=== PATIENT | female | born 1985 | race Caucasian/White ===

== ENCOUNTER 2021-12-07 14:43 | Outpatient (CLI) | payer OTHER, BC, SELFPAY ==
--- NOTE | 2021-12-07 15:12 | ECG_ITS ---
Measurements Intervals [place] Rate: 81 P: 65 NM: 149 QRS: 41 QRSD: 86 T: 36 QT: 372 QTc: 432 Interpretive Statements SINUS RHYTHM WITH SINUS ARRHYTHMIA RSR' IN V1 OR V2, PROBABLY NORMAL VARIANT BASELINE ARTIFACT- II, III NORMAL ECG Electronically Signed On 12-07-2021 15:27:05 SOCIAL WORK SPECIALIST by Jose Luis Ward D.O.
[2021-12-07 15:37] LABS: Hematocrit 39.1 % (37.0-47.0); Hemoglobin 13.8 g/dL (12.0-15.0)
== END 2021-12-07 14:44 | disposition home or self-care (01) ==
PROVIDERS: Anesthesiology; PCP Family Medicine; Visit Provider Surgery Plastic and Reconstructive Surgery
DX: Z01.818 Encounter for other preprocedural examination (principal); I49.9 Cardiac arrhythmia, unspecified
CPT/HCPCS: 36415; 85014; 85018; 93005

== ENCOUNTER → 2021-12-09 00:28 | Outpatient (CLI) | payer BC, SELFPAY ==
[2021-12-09 22:40] LABS: SARS-CoV-2 RNA PCR Negative
== END ==
PROVIDERS: PCP Family Medicine; Visit Provider Surgery Plastic and Reconstructive Surgery
DX: Z01.812 Encounter for preprocedural laboratory examination (principal); Z20.822 Contact with and (suspected) exposure to COVID-19
CPT/HCPCS: C9803; U0003; U0005

== ENCOUNTER 2021-12-12 | Day surgery (SDC) | payer BC, OTHER, SELFPAY ==
[2021-12-05 15:38] VITALS: BMI 26.9
--- NOTE | 2021-12-05 15:56 | PC.NURSE ---
Report to the Outpatient Waiting Room, entrance under the green pavilion located off [facility], at time 6:30 on date 12/12/21. OR Time: 8:30. - You will be asked a series of questions to screen for COVID 19 for your protection. - A mask is required within the hospital. - No visitors are allowed at this time. Preoperative COVID Testing Requirements: COVID TEST 12/09 AT 8:00 No COVID Test needed if: (proof is required; if not received patient will have Rapid Test prior to entry) - Patient has received COVID Vaccine at least 14 days prior to procedure date or - Patient has positive COVID test result within last 90 days of surgery date. COVID Test needed if above criteria is not met If not COVID vaccinated a COVID test must be conducted within 72 hours of surgery and patient is asked to isolate self from time of testing until procedure. You will go to the [facility] for your COVID testing. The [facility] is located at the corner of [address] from [facility]. You will only be called if COVID results are positive and your surgeon may reschedule your elective surgery date. Patients may have clear liquids (water, carbonated beverages, clear teas, apple juice) until 3 hours prior to surgery (5:30) with a maximum of 20 ounces. - No food from midnight until time of surgery Take the following medications with a SIP of water the morning of surgery: WELLBUTRIN, LEXAPRO Medications to discontinue per physician: VITAMINS/SUPPLEMENTS Date to take last dose: 12/08/21 Please no make-up, nail faroese, hairspray, perfume, deodorant, or body powder the day of surgery. No jewelry (including any body piercings) or valuables the day of surgery, leave them at home. Please take a shower or bath the night before, or the morning of, surgery with an antibacterial soap. Wear comfortable, loose fitting clothing. - Jewelry must be removed prior to entering the operating room. Rings and piercings that are not removed may be cut off. - The hospital will not accept responsibility for valuables. - Please leave all valuables, including medications, at home the day of surgery. If you are going home after surgery, a licensed milk driver must drive you home. - NO public transportation without another adult. - We recommend that an adult stay with you for 24 hours following discharge. - We also recommend that you do not drive, make important decision, drink alcoholic beverages, or take any drugs that were not prescribed by your health care provider for at least 24 hours after your discharge time. Follow any additional instructions given to you from your surgeon. Telephone instructions given to JAMIE LOPEZ and asked if any additional questions and then verbalized understanding. Patient advised to call surgeon office or pre surgery nurse liaison [phone] if any additional questions.
--- NOTE | 2021-12-11 11:49 | PM.IMHP ---
H&P: HPI History of Present Illness Date/Time: 12/11/21 11:49 This is a 36-year-old female who desires permanent sterilization. She was offered alternatives including but not exclusive of long-acting contraceptives pills patches injections implants. She decides upon permanent sterilization understanding that this is permanent and irreversible risks and benefits of the procedure reviewed including but not exclusive of , aspiration bleeding, transfusion, perforation under bowel, bladder, ureters, or other internal organs with need for open laparotomy. She received the [employer] handout entitled sterilization for men and women. She had all questions answered. She asked to proceed Chief Complaint: desires permanent sterilization Review of Systems Review of Systems: All systems reviewed & are unremarkable except as noted in HPI and below PMFSH Past Medical History Medical History Abnormal weight gain BMI 29.0-29.9,adult Family History Family History Mother Hypertension Family history of diabetes mellitus in first degree relative Father Cerebrovascular accident Grandparent Carcinoma of colon Family history of lung cancer Family history of malignant neoplasm of breast Family history of heart disease in male family member before age 55 Other Family history of malignant neoplasm Family history of malignant neoplasm of ovary Family history of throat cancer Social History Social History Smoking status: Never smoker Alcohol intake: current Drinks per week: 2 Substance use: never Substance use type: does not use Spiritual care concerns: No Meds Home Medications and Allergies Home Medications Medication Instructions Recorded Confirmed Type bupropion HCl 150 mg 24 hr tablet, 150 mg PO QAM #30 tablet 08/02/21 12/05/21 Rx extended release escitalopram oxalate 20 mg tablet 20 mg PO DAILY #30 tablet 08/02/21 12/05/21 Rx docusate sodium 100 mg capsule 100 mg PO DAILY #14 cap 11/29/21 12/05/21 Rx carisoprodol 350 mg tablet 350 mg PO TID PRN #21 tablet 12/01/21 12/05/21 Rx oxycodone-acetaminophen 5 mg-325 1 tablet PO Q6H PRN #30 tablet 12/01/21 12/05/21 Rx mg tablet ascorbic acid (vitamin C) [Vitamin 2,000 mg PO DAILY 12/05/21 12/05/21 History C] ascorbic acid-vitamin E-biotin 1 tablet PO DAILY 12/05/21 12/05/21 History [Hair, Skin, Nails with Biotin] magnesium 100 mg PO DAILY 12/05/21 12/05/21 History Allergies Allergy/AdvReac Type Severity Reaction Status Date / Time codeine AdvReac Severe Vomiting Verified 12/05/21 15:34 Exam Const: General: no acute distress Eyes: General: appearance normal, both eyes and all related structures Neck: Neck: supple and no JVD Thyroid: thyroid normal Resp: Effort & Inspection: normal respiratory effort Auscultation: clear to auscultation bilaterally Cardio: Rate: regular rate Rhythm: regular rhythm GI: Inspection: non-distended GI Palp: Yes Soft to palpation, No Tenderness to palpation present (GI) and No Guarding due to palpation present (GI) Auscultation: normal bowel sounds : General: Yes bladder normal to palpation External Female Exam: normal external appearance Speculum Exam - Vagina: normal vaginal discharge and No vaginal bleeding Speculum Exam - Cervix: nontender Bimanual exam- vagina & uterus: bladder normal to palpation and No Cervical tenderness present OB/external & speculum: No vaginal bleeding Skin: General skin exam: no rashes or lesions noted Extrem: General: normal to inspection and no edema Psych: Mental Status: mental status grossly normal Affect: normal affect Assessment and Plan Additional Plan impression: Desires permanent sterilization Plan: Laparoscopic tubal ligation
[2021-12-12] VITALS (11 sets, daily range): BP systolic 103–132; BP diastolic 46–89; PULSE 78–98; RESP 14–20; TEMP 36.4–37.2; O2SAT 96–100
[2021-12-12 07:05] LABS: Urine Cotinine NEGATIVE
--- NOTE | 2021-12-12 07:06 | WPDHPUPDATE1 ---
History and Physical Update Update Date/Time: 12/12/21 07:06 History and Physical has been reviewed, including an updated exam of the patient. There are NO changes in the patient's condition. Risks, benefits, and alternatives have been discussed and questions answered. Patient agrees to proceed with procedure.
[2021-12-12] MEDS: ACETAMINOPHEN 500 MG TABLET 1000 MG PO (07:08)
[2021-12-12] MEDS: KETOROLAC 15 MG/ML VIAL (*BKC) IV PUSH (07:09)
[2021-12-12] MEDS: SCOPOLAMINE 1.5 MG PATCH TRANSDERM (07:28)
--- NOTE | 2021-12-12 07:28 | WPDANESEPPF ---
Anes - Initial Pre Proc Eval Procedure: Operation Date: 12/12/21 08:30 Proposed Procedures p Bilateral Breast Augmentation Mastopexy with Galaflex - Lenny Vallejo MD s Abdominoplasty with Liposuction - Lenny Vallejo MD s Laparoscopic Bilateral Tubal with Fallopian Rings - David Stanford MD Date/Time: 12/12/21 07:28 Surgeon: Lenny Vallejo MD Pre Op Diagnosis: skin laxity, micromastia Patient Data Age: 36 Gender: F Height: 1.7 m Weight: 77.15 kg Allergies Allergy/AdvReac Type Severity Reaction Status Date / Time codeine AdvReac Severe Vomiting Verified 12/12/21 06:39 Home Medications Medication Instructions Recorded Confirmed Type bupropion HCl 150 mg 24 hr tablet, 150 mg PO QAM #30 tablet 08/02/21 12/05/21 Rx extended release escitalopram oxalate 20 mg tablet 20 mg PO DAILY #30 tablet 08/02/21 12/05/21 Rx docusate sodium 100 mg capsule 100 mg PO DAILY #14 cap 11/29/21 12/05/21 Rx carisoprodol 350 mg tablet 350 mg PO TID PRN #21 tablet 12/01/21 12/05/21 Rx oxycodone-acetaminophen 5 mg-325 1 tablet PO Q6H PRN #30 tablet 12/01/21 12/05/21 Rx mg tablet ascorbic acid (vitamin C) [Vitamin 2,000 mg PO DAILY 12/05/21 12/05/21 History C] ascorbic acid-vitamin E-biotin 1 tablet PO DAILY 12/05/21 12/05/21 History [Hair, Skin, Nails with Biotin] magnesium 100 mg PO DAILY 12/05/21 12/05/21 History Laboratory Tests 12/12/21 06:50 Cotinine Negative Patient hx anesthesia problems: none Family hx anesthesia problems: none Results Review: All pre-operative results and documents have been reviewed as part of the pre-operative evaluation. [facility] Past Medical History Medical History Abnormal weight gain BMI 29.0-29.9,adult Surgical History Surgical History (Updated 12/12/21 @ 07:29 by David Purvis MD) H/O wisdom tooth extraction History of section Family History Family History Mother Hypertension Family history of diabetes mellitus in first degree relative Father Cerebrovascular accident Grandparent Carcinoma of colon Family history of lung cancer Family history of malignant neoplasm of breast Family history of heart disease in male family member before age 55 Other Family history of malignant neoplasm Family history of malignant neoplasm of ovary Family history of throat cancer Social History Social History Smoking status: Never smoker Alcohol intake: current Drinks per week: 2 Substance use: never Substance use type: does not use Living arrangements: with family Spiritual care concerns: No Anes - Eval Final PreProcedure Day of Procedure 12/12/21 07:28 Patient weight: overweight Heart: regular rate and rhythm Lungs: clear to auscultation Airway: Mallampati scale class II Neurological: alert and oriented Last oral intake: >/= 8 hours ASA classification: II Emergent: no Anesthetic plan: proceed Anesthesia type and monitoring: general ETT and standard monitoring Results Review: All pre-operative results and documents have been reviewed as part of the pre-operative evaluation. Informed Consent: The patient's anesthetic plan and its attendant risks and benefits were discussed with the patient/family/POA. Questions were solicited and answers provided to the satisfaction of the patient/family/POA.
[2021-12-12] MEDS: LACTATED RINGERS 1,000 ML 30 ML IV CONT ×2 (07:33→15:36)
--- NOTE | 2021-12-12 07:40 | WPDHPUPDATE1 ---
History and Physical Update Update Date/Time: 12/12/21 07:40 History and Physical has been reviewed, including an updated exam of the patient. There are NO changes in the patient's condition. Risks, benefits, and alternatives have been discussed and questions answered. Patient agrees to proceed with procedure.
--- NOTE | 2021-12-12 08:16 | W.PM.PROC2 ---
Procedure Note - Detailed Date of Procedure 12/12/21 Pre-op Diagnosis skin laxity, micromastia Post-op Diagnosis same Procedure Performed 1. Bilateral Augmentation Mastopexy with Galaflex 2. Progressive tension abdominoplasty with suction lipectomy Surgeon Lenny Vallejo MD Anesthesia general Findings Superior Pedicle, Inverted T Mastopexy Bilateral Ji Olson SoftTouch 400cc implants Right REF# [id number] SN [id number] Left REF# [id number] SN [id number] Galaflex REF [id number] Lot [id number] Abdominal tissue removed: 1538 grams Abdominal lipoaspirate 2500 cc Description of Procedure She is here today for the above. Previously and again today the risks, benefits, alternatives were discussed in extensive detail. I wanted them to be very realistic about the risks involved as well as expectations. We discussed aftercare and what to monitor for. I was very upfront about the risks of wound breakdown leading to loss of skin, open wounds, and need for additional procedures with permanent abdominal deformity. We discussed DVT/PE risks and management. Made sure answered all of their questions to their satisfaction today and consent was obtained. Marked in the preoperative holding area with their verification. The patient was taken to the operating room placed supine on the operating table. Anesthesia was provided by anesthesiology. A surgical time-out was taken. Breast We cleansed the skin and 1% lidocaine and 0.25% Marcaine with epinephrine was used anesthetize as a field block. She was prepped and draped in a standard sterile fashion. Tegaderm nipple Doran were placed. I de-epithelialized a flap at the T junction. I then made a incisions superior to this. Dissection was continued at 45 degree angle until the chest wall as identified. I incised the pectoralis major along its inferior border and completely released the inferior border leaving the medial border intact. I created a subpectoral pocket in the appropriate dimensions based on our preoperative planning for the implant. I then copiously irrigated with saline solution and verified a strict hemostasis. Next the use a triple antibiotic and Betadine containing solution to irrigate the pocket. I washed my gloves with the triple antibiotic and Betadine solution. We washed the implant immediately upon opening it with this solution and only opened it when we needed it. I used implant funnel and no-touch technique. The implant was introduced into the pocket using the funnel. Having verified positioning of the implant this was closed using 2-0 Vicryl. I tailor tacked the breast into position. Placed her in a sitting position. Based on preoperative markings and intraoperative observations nipple-areolar complex was marked out at 38 mm. I then placed supine. I de-epithelialized the superior pedicle. Made the remainder of the incisions removing the central keel of tissue. I kept a film of tissue protecting the implant during this. Copious irrigated with saline solution as well as Betadine a verified strict hemostasis. I then sutured the GalaFLEX after was trimmed appropriately with 2-0 Vicryl. I then closed with 2-0 Stratafix along the IMF. 2-0 PDS along the vertical. I used a 3-0 Stratafix around the areola. 3-0 Monocryl in the vertical. 3-0 strata fix along the IMF. Final closure was running subcuticular 4-0 Monocryl. This was followed by tissue glue. Fluffs and surgical bra were placed. Tubal ligation At this time Dr. Stanford completed his portion of the procedure. See his notes. Abdomen The abdomen and flanks were infiltrated with a tumescent solution. Using a 5 mm basket cannula based on S.A.F.E. technique suction lipectomy was completed in multiple planes and passes. During this procedure we did turn her in lateral decubitus position uneventfully. A 10 blade was used to make the upper incision. I continued dissection down to the level of fascia. Elevated just what was n
[2021-12-12] MEDS: ceFAZolin 2 GM/D5W 50 ML 2 GM/50 ML BAG IVPB (08:41)
[2021-12-12] MEDS: TRANEXAMIC ACID 1,000MG/ISO100 1,000 MG/100 ML BAG 200 MG IVPB (08:55)
[2021-12-12] MEDS: LACTATED RINGERS IRRIG 1,000 ML, LIDOCAINE HCL 1% LOCAL INJ 50 ML, EPINEPHrine HCL INJ ... INFILTRATE ×2 (09:34→13:32)
[2021-12-12] MEDS: BUPIVACAINE HCL 0.25% PF 30 ML VIAL INFILTRATE (09:37)
[2021-12-12] MEDS: LIDO 1%/EPINEPHRINE 1:100,000 50 ML VIAL 30 ML INFILTRATE (09:39)
--- NOTE | 2021-12-12 11:58 | W.PM.PROC2 ---
Procedure Note - Detailed Date of Procedure 12/12/21 Pre-op Diagnosis desires sterility Post-op Diagnosis same Procedure Performed Laparoscopic bilateral tubal ligation with rings Surgeon David Stanford MD Anesthesia general Indications This is a 36-year-old female having a mommy makeover who desires permanent sterilization Findings Normal-appearing uterus ovaries and tubes Description of Procedure The patient was previously had undergone breast augmentation and was generally in sleep. Dr. Berny lopez and I performed the tubal ligation. The infraumbilical incision made the Veress needle passed the abdomen. The abdomen was filled with CO2 gas to 15mm Hg. Patient placed in Trendelenburg and a suprapubic incision made. The 8mm trocar advanced under direct visualization assuring no injury. The right fallopian tube was grasped and a good knuckle of tube formed with excellent blanching the left fallopian tube was grasped with a good knuckle of tube formed with the ring and excellent blanching seen. The gas was removed from the abdomen as hemostasis was assured Dr. De Anda proceeded from there. There were no immediate complications and all counts were correct Estimated Blood Loss 5 Drains No Packing No Pathology none sent Complications No immediate complications Condition stable Disposition no change
[2021-12-12] MEDS: BUPIVACAINE/EPINEPHRINE 0.5% 10 ML VIAL 60 ML INFILTRATE (13:33)
--- NOTE | 2021-12-12 17:20 | PC.NURSE ---
This patient, Saida Michelle, was received from PACU on 12/12/21 at 1720. Patient/family oriented to unit policies and routines
[2021-12-12] MEDS: carisoprodoL (*CRX) 350 MG TABLET PO (17:47)
[2021-12-12] MEDS: LACTATED RINGERS 1,000 ML 125 ML IV CONT (17:48)
[2021-12-12] MEDS: MORPHINE SULFATE (*CRX) 2 MG/ML INJ IV PUSH ×2 (17:48→19:42)
[2021-12-12] MEDS: DOCUSATE SODIUM 100 MG CAPSULE PO (19:42)
[2021-12-12] MEDS: ENOXAPARIN 40 MG/0.4 ML SYRINGE SUB-Q (19:42)
[2021-12-12] MEDS: oxyCODONE/ACETAMINOPHEN (*CRX) 5-325 MG TABLET PO (21:33)
[2021-12-13] MEDS: carisoprodoL (*CRX) 350 MG TABLET PO ×3 (00:35→13:11)
[2021-12-13 03:24] VITALS: BP 113/71; PULSE 90; RESP 18; TEMP 37.1
[2021-12-13] MEDS: MORPHINE SULFATE (*CRX) 2 MG/ML INJ IV PUSH (03:26)
--- NOTE | 2021-12-13 07:15 | WPDANESPN ---
Anes - Prog Note Post-Op Date/Time: 12/13/21 07:15 Cardiovascular status: normal Respiratory status: normal Airway patency: baseline Mental status: baseline Post-Op hydration status: normal Vital Signs: Last Vital Signs Temp 98.7 F 12/13/21 03:24 Pulse 90 12/13/21 03:24 Resp 18 12/13/21 03:24 BP 113/71 12/13/21 03:24 Pulse Ox 97 12/12/21 23:50 Pain Score (VAS): 2/10 I/O: Intake & Output 12/12/21 12/12/21 12/13/21 15:59 23:59 07:59 Intake Total 821 309 8107 Output Total 820 400 Balance 650 -270 700 Post-procedural complaints: none Patient Feedback: Patient satisfied with anesthetic care.
[2021-12-13 08:00] VITALS: BP 96/63; PULSE 94; RESP 18; TEMP 37.4
[2021-12-13] MEDS: DOCUSATE SODIUM 100 MG CAPSULE PO (08:00)
[2021-12-13] MEDS: oxyCODONE/ACETAMINOPHEN (*CRX) 5-325 MG TABLET PO ×2 (08:01→13:11)
[2021-12-13] MEDS: ESCITALOPRAM OXALATE 10 MG TABLET 20 MG PO (08:02)
[2021-12-13] MEDS: buPROPion HCL XL (24 HR) 150 MG TABCR PO (08:02)
--- NOTE | 2021-12-13 08:46 | WPDPN ---
Progress Note: A&P Assessment and Plan (1) Skin laxity: Code(s): L57.4 - Cutis laxa senilis Status: Acute Assessment and Plan: She is doing very well after: 1. Bilateral Augmentation Mastopexy with Galaflex 2. Progressive tension abdominoplasty with suction lipectomy 3. Tubal ligation (by Dr. Stanford) Will discharge home. I will see her back. Today we had a lengthy discussion about the care. Discussed activity limitations. What to monitor for. This was a lengthy open-ended conversation making sure she was well informed. We also discussed when to proceed to the emergency room/call 911. Explained were available with any other questions at any time. She voiced clear understanding. Will discharge home. I will see her back. (2) Breast ptosis: Code(s): N64.81 - Ptosis of breast Status: Acute (3) Micromastia: Code(s): N64.82 - Hypoplasia of breast Status: Acute Subjective Date/time seen: 12/13/21 07:15 She states she is doing very well after 1. Bilateral Augmentation Mastopexy with Galaflex 2. Progressive tension abdominoplasty with suction lipectomy 3. Tubal ligation (by Dr. Stanford). Ambulating. Pain controlled. Tolerating some p.o. although limited so far. No chest pain. No shortness of breath. No calf tenderness. Review of Systems Review of Systems: All systems reviewed & are unremarkable except as noted in HPI and below Exam Narrative: Alert and oriented no obvious distress Bilateral breasts are soft. No signs of infection. No hematoma. No seroma. Good color and capillary refill. Abdomen is healing well. No signs of infection. No hematoma. No seroma. Good color and capillary refill. No calf tenderness. Negative Homans. Objective Data Vital Signs Vital Signs: Vital Signs - 24 hr 12/12/21 15:26 12/12/21 15:40 12/12/21 15:55 Temperature 36.7 C Pulse Rate 87 79 80 Respiratory Rate 17 18 14 Blood Pressure 103/68 123/76 121/82 Pulse Oximetry 100 100 100 12/12/21 16:10 12/12/21 16:25 12/12/21 16:40 Temperature 36.8 C Pulse Rate 82 85 85 Respiratory Rate 15 14 16 Blood Pressure 125/80 120/83 123/88 Pulse Oximetry 97 97 97 12/12/21 16:55 12/12/21 17:30 12/12/21 19:50 Temperature 37.0 C 37.2 C Pulse Rate 85 86 93 Respiratory Rate 16 14 16 Blood Pressure 119/87 122/88 125/88 Pulse Oximetry 97 96 99 12/12/21 23:50 12/13/21 03:24 Temperature 37.2 C 37.1 C Pulse Rate 98 90 Respiratory Rate 20 18 Blood Pressure 132/89 113/71 Pulse Oximetry 97 Intake/Output Intake/Output: Intake & Output 12/10/21 12/11/21 12/12/21 12/13/21 23:59 23:59 23:59 23:59 Intake Total 1200 1100 Output Total 820 400 Balance 380 700 Meds/Results Medications: Active Medications Generic Name Dose Route Start Last Admin Trade Name Freq PRN Reason Stop Dose Admin Bupropion HCl 150 mg 12/13/21 09:00 12/13/21 08:02 Bupropion Hcl Xl (24 Hr) 150 Mg Tabcr PO 150 mg QAM JOSIE Administration Carisoprodol 350 mg 12/12/21 18:00 12/13/21 05:18 Carisoprodol (*Crx) 350 Mg Tablet PO 350 mg Q6HR JOSIE Administration Diazepam 5 mg 12/12/21 15:37 Diazepam (*Crx) 5 Mg Tablet PO TID PRN Anxiety Docusate Sodium 100 mg 12/12/21 21:00 12/13/21 08:00 Docusate Sodium 100 Mg Capsule PO 100 mg Q12HR JOSIE Administration Enoxaparin Sodium 40 mg 12/12/21 21:00 12/12/21 19:42 Enoxaparin 40 Mg/0.4 Ml Syringe SUB-Q 40 mg DAILY@2100 JOSIE Administration Escitalopram Oxalate 20 mg 12/13/21 09:00 12/13/21 08:02 Escitalopram Oxalate 10 Mg Tablet PO 20 mg DAILY JOSIE Administration Morphine Sulfate 2 mg 12/12/21 15:37 12/13/21 03:26 Morphine Sulfate (*Crx) 2 Mg/Ml Inj IV PUSH 2 mg Q2H PRN Administration Pain Ondansetron HCl 4 mg 12/12/21 15:37 Ondansetron Inj 4 Mg/2 Ml Vial IV PUSH Q6H PRN Nausea Oxycodone/Acetaminophen 1 - 2 tablet 12/12/21 15:37
--- NOTE | 2021-12-13 08:49 | P.DS_ITS ---
DS: Admitting Diagnosis Discharge Date 12/13/2021 Admitting Diagnosis Skin laxity, breast ptosis, micromastia DS: Discharge Diagnosis Discharge Diagnosis (1) Skin laxity: Code(s): L57.4 - Cutis laxa senilis Status: Acute (2) Breast ptosis: Code(s): N64.81 - Ptosis of breast Status: Acute (3) Micromastia: Code(s): N64.82 - Hypoplasia of breast Status: Acute DS: Summary Hospital Course Hospital Course: She underwent: 1. Bilateral Augmentation Mastopexy with Galaflex 2. Progressive tension abdominoplasty with suction lipectomy 3. Tubal ligation (by Dr. Stanford) Postoperatively she has done very well. Ambulating. Tolerating some diet. Pain controlled. Will plan for discharge home later today. Time Spent with Patient Time attestation: Total time spent providing and/or coordinating discharge servi raj: 25 min Exam Narrative: Alert and oriented no obvious distress Bilateral breasts are soft. No signs of infection. No hematoma. No seroma. Good color and capillary refill. Abdomen is healing well. No signs of infection. No hematoma. No seroma. Good color and capillary refill. No calf tenderness. Negative Homans. Discharge Plan Discharge Patient Disposition: Home, Self-Care Discharge Instructions: POST OPERATIVE DISCHARGE INSTRUCTIONS LENNY VALLEJO M.D. [facility] [address] [place] [address] * No driving for 24 hours after anesthesia and while you are taking pain medication. * Take all prescribed medication as directed * Diet as tolerated. * No lifting or activity that raises blood pressure for 48 hours. * Regular walking / ambulation. * No showering until directed to. Once you shower do not take pain medication before showering as the combination of medication and heat may cause you to feel dizzy or pass out. * No pools or tubs for 2 weeks. * Call with any questions or concerns. * Slowly stand up straight as tolerated over the week. * No straining abdomen or lifting more than 20 pounds. * Dressing Care: May shower. If you have any questions or concerns, please call the office . If it is after hours you will be directed to the bilingual receptionist exchange. Shortness of breath, chest pain, or other medical emergency dial 911 / proceed to the Emergency Room. Stand Alone Forms: General Discharge Instructions Follow-up/Referrals: Lenny Vallejo MD [Physician] - 1 Week Discharge Medications: Continued docusate sodium [Colace] 100 mg capsule 100 mg PO DAILY Qty: 14 RF: 0 carisoprodol [Soma] 350 mg tablet 350 mg PO TID PRN (Reason: muscle pain) Qty: 21 RF: 0 oxycodone-acetaminophen [Percocet] 5-325 mg tablet 1 tablet PO Q6H PRN (Reason: pain) Qty: 30 RF: 0 ascorbic acid (vitamin C) 2,000 mg Tablet Extended Release 2,000 mg PO DAILY RF: 0 magnesium 100 mg Capsule 100 mg PO DAILY RF: 0 Hair, Skin, Nails with Biotin 7.5-7.5-1,250 mg-unit-mcg Tablet,Chewable 1 tablet PO DAILY RF: 0 bupropion HCl [Wellbutrin XL] 150 mg tablet extended release 24 hr 150 mg PO QAM Qty: 30 RF: 2 escitalopram oxalate 20 mg tablet 20 mg PO DAILY Qty: 30 RF: 2
== END 2021-12-13 13:45 | disposition home or self-care (01) ==
LOC: ANHSURGERY 15:37 → ANHOB2 16:49
PROVIDERS: Obstetrics & Gynecology; PCP Family Medicine; Visit Provider Surgery Plastic and Reconstructive Surgery
PROC: (CPT 19316; principal; 2021-12-12 08:30)
PROC: (CPT 19325; 2021-12-12 08:30)
PROC: (CPT 58671; 2021-12-12 08:30)
DX: Z30.2 Encounter for sterilization (principal); Z41.1 Encounter for cosmetic surgery; L57.4 Cutis laxa senilis; N64.81 Ptosis of breast; N64.82 Hypoplasia of breast; Z79.899 Other long term (current) drug therapy
CPT/HCPCS: 58671; 19325; 19316; 15777 ×2; 15877; 15830; 15847; 80307; 99199; A4264; A9270; C9803; J0171; J0690; J1100; J1170; J1200; J1580; J1650; J1885; J2250; J2270; J2405; J2710; J3010; J7120; U0003; U0005